=== PATIENT | female | born 1965 | race African-American/Black ===

== ENCOUNTER → 2017-02-11 | Outpatient (CLI) | payer MEDICARE, MEDICAID ==
--- NOTE | 2017-02-14 16:40 | Diagnostic Imaging Report ---
Indication: SCREEN Technique: Bilateral Craniocaudal and mediolateral oblique views were obtained. Comparison: None. Patient cannot recall where and when prior mammograms obtained. This will serve therefore is a new baseline mammogram if prior mammograms can be made available, please do so and an addendum report will be issued Findings: There is a left chest pacemaker which could obscure axillary pathology. The breasts demonstrate scattered fibroglandular densities. No parenchymal asymmetry nor architectural distortion. There are benign calcifications bilaterally. No dominant masses nor suspicious clustered microcalcifications. No skin thickening nor nipple retraction. No axillary adenopathy. . Impression: No mammographic evidence of malignancy. Routine annual rescreening recommended. BI-RADS category 2-benign.
== END | disposition home or self-care (01) ==
LOC: MAMMO 11:39
DX: Z12.31 Encounter for screening mammogram for malignant neoplasm of breast (principal)
CPT/HCPCS: 77067

== ENCOUNTER 2017-07-27 10:26 | Outpatient (RCR) | payer MEDICARE, MEDICAID | END 2017-07-28 | disposition home or self-care (01) | LOC: PTY 10:26 | DX: R41.81 Age-related cognitive decline (principal); I63.40 Cerebral infarction due to embolism of unspecified cerebral artery; R53.1 Weakness | CPT/HCPCS: 97110; 97140; 97162; G8978; G8979 ==

== ENCOUNTER 2017-08-10 13:00 | Outpatient (RCR) | payer MEDICARE, MEDICAID | END 2017-08-27 | disposition home or self-care (01) | LOC: PTY 13:00 | DX: R41.81 Age-related cognitive decline (principal); R53.1 Weakness; I69.859 Hemiplegia and hemiparesis following other cerebrovascular disease affecting unspecified side ==

== ENCOUNTER 2018-05-05 10:00 | Outpatient (RCR) | payer MEDICARE, MEDICAID | END 2018-05-27 | disposition home or self-care (01) | LOC: PTY 10:00 | DX: R26.89 Other abnormalities of gait and mobility (principal); I69.851 Hemiplegia and hemiparesis following other cerebrovascular disease affecting right dominant side; I10 Essential (primary) hypertension; E11.9 Type 2 diabetes mellitus without complications; Z95.0 Presence of cardiac pacemaker | CPT/HCPCS: 97110; 97112; 97161; G8978; G8979 ==

== ENCOUNTER 2018-06-02 11:17 | Outpatient (RCR) | payer MEDICARE, MEDICAID | END 2018-06-27 | disposition home or self-care (01) | LOC: PTY 11:17 | DX: R26.89 Other abnormalities of gait and mobility (principal); I69.851 Hemiplegia and hemiparesis following other cerebrovascular disease affecting right dominant side ==

== ENCOUNTER 2018-06-30 10:54 | Outpatient (RCR) | payer MEDICARE, MEDICAID | END 2018-07-28 | disposition home or self-care (01) | LOC: PTY 10:54 | DX: R26.89 Other abnormalities of gait and mobility (principal); I69.851 Hemiplegia and hemiparesis following other cerebrovascular disease affecting right dominant side ==